=== PATIENT | male | born 1960 | race Caucasian/White ===

== ENCOUNTER 2018-02-04 22:35 | Observation (INO) | payer SELFPAY ==
[2018-02-04 23:27] LABS: Absolute Lymphocytes (CBC) 3.2 K/uL (0.7-4.9); Absolute Monocytes 0.8 K/uL (0.1-1.3); Absolute Neutrophil 5.2 K/uL (1.8-8.0); Basophils % 1.1 % (0-1.3); Eosinophils % 2.5 % (0-4.4); Hematocrit 45.4 % (39.6-49.0); Lymphocytes % 33.6 % (15.3-44.8); MCH 29.3 pg (27.0-35.0); MCV 87.2 fL (80-100); MPV 11.2 fL (7.6-11.3); Monocytes % 8.2 % (3.3-12.3)
[2018-02-04 23:44] LABS: Protime INR 1.58
[2018-02-05 00:08] LABS: ALT/SGPT 58 U/L (12-78); AST/SGOT 24 U/L (15-37); Albumin 3.5 g/dL (3.4-5.0); Alkaline Phosphatase 52 U/L (45-117); BUN Blood Urea Nitrogen 21 mg/dL (7-18); Bicarbonate 26 mmol/L (21-32); Bilirubin Direct 0.1 mg/dL (0-0.2); Bilirubin Total 0.3 mg/dL (0.2-1.0); Glucose Level 202 mg/dL (74-106); NT PRO-BNP 501 pg/mL (<125); Potassium 3.8 mmol/L (3.5-5.1); Protein, Total 6.6 g/dL (6.4-8.2); Sodium Level 139 mmol/L (136-145); Troponin (Emerg Dept Use Only) < 0.02 ng/mL (0.0-0.045)
[2018-02-05 00:09] LABS: Magnesium 1.4 mg/dL (1.8-2.4)
[2018-02-05] MEDS ORDERED: NA CHLORIDE 0.9% 500 ML ONE ×2 (00:09→00:58)
[2018-02-05] MEDS ORDERED: DIGOXIN 0.25 MG/ML AMP ONE (00:17)
[2018-02-05] MEDS ORDERED: METOPROLOL TARTRATE 5 MG/5 ML INJ IV ONE (00:17)
--- NOTE | 2018-02-05 00:58 | ER ---
Nurse's Notes [facility] Name: David Varela Age: 57 yrs Sex: Male : 1960 Arrival Date: 02/04/2018 Time: 22:35 Bed 24 Private MD: Vlad Schroeder S Diagnosis: Unspecified atrial fibrillation;Chest pain, unspecified Presentation: 02/04 22:46 Presenting complaint: Patient states: "I have issues every now and then with my A-Fib. aj1 I started having chest tightness and a hard time breathing at about 6:00 and it just keeps getting worse" Patient also reports nausea and SOB. Transition of care: patient was not received from another setting of care. Onset of symptoms was February 04, 2018 at 18:00. Risk Assessment: Do you want to hurt yourself or someone else? Patient reports no desire to harm self or others. Initial Sepsis Screen: Does the patient meet any 2 criteria? HR > 90 bpm. No. Patient's initial sepsis screen is negative. Does the patient have a suspected source of infection? No. Patient's initial sepsis screen is negative. Care prior to arrival: None. 22:46 Method Of Arrival: Wheelchair aj1 22:46 Acuity: MEDHAT 3 aj1 Triage Assessment: 22:49 General: Appears in no apparent distress. uncomfortable, Behavior is calm, cooperative, aj1 appropriate for age. Pain: Complains of pain in mid-sternal area Pain does not radiate. Pain currently is 7 out of 10 on a pain scale. Quality of pain is described as pressure, Pain began 4 hours ago. Is continuous, Alleviated by nothing. Neuro: Level of Consciousness is awake, alert, obeys commands. Cardiovascular: Reports chest pain, shortness of breath, Patient's skin is warm and dry. Rhythm is irregular. Respiratory: Airway is patent Respiratory effort is even, unlabored, Respiratory pattern is regular, symmetrical. Historical: - Allergies: 22:49 No Known Allergies; aj1 - Home Meds: 22:49 Metformin Oral [Active]; Glipizide Oral [Active]; Xarelto oral oral [Active]; aj1 Metoprolol Tartrate Oral [Active]; Lyrica Oral [Active]; Lisinopril Oral [Active]; Hydrochlorothiazide Oral [Active]; - PMHx: 22:49 Atrial Fib; Hypertension; Diabetes - NIDDM; aj1 - PSHx: 22:49 back surgery; aj1 - Immunization history:: Flu vaccine is not up to date. - Social history:: Smoking status: Patient/guardian denies using tobacco. - Ebola Screening: : Patient denies travel to an Ebola-affected area in the 21 days before illness onset. Screenin:20 Abuse screen: Denies threats or abuse. Denies injuries from another. Nutritional aj1 screening: No deficits noted. Tuberculosis screening: No symptoms or risk factors identified. Fall Risk None identified. Assessment: 22:45 General: Appears in no apparent distress. uncomfortable, well groomed, Behavior is kr2 calm, cooperative, appropriate for age. Pain: Complains of pain in mid-sternal area Pain radiates to chest Pain currently is 7 out of 10 on a pain scale. Quality of pain is described as pressure, Pain began This afternoon Is continuous, Alleviated by nothing. Neuro: Level of Consciousness is awake, alert, obeys commands, Oriented to person, place, time, situation. Cardiovascular: Heart tones S1 S2 present Patient's skin is warm and dry. Rhythm is atrial fibrillation. Respiratory: Airway is patent Respiratory effort is even, unlabored, Respiratory pattern is regular, symmetrical. GI: Abdomen is round non-distended, Bowel sounds present X 4 quads. Patient currently denies nausea, vomiting. Derm: Skin is intact, is healthy with good turgor, Skin is pink, warm \\T\\ dry. Musculoskeletal: Circulation, motion, and sensation intact. 02/05 00:00 Reassessment: Patient appears in no apparent distress at this time. Patient and/or kr2 family updated on plan of care and expected duration. Pain level reassessed. Patient is alert, oriented x 3, equal unlabored respirations, skin warm/dry/pink. 01:08 Reassessment: Patient appears in no apparent distress at this time. Patient and/or kr2 family updated on plan of care and expected duration. Pain level reassessed. Patient is alert, oriented x 3, equal unlabored respirations, skin warm/dry/pink. Vital Signs: 02/04 22:49 BP 122 / 82; Pulse 96; Resp 20; Temp 97.1; Pulse Ox 99% on R/A; Weight 131.54 kg (R); aj1 Height 6 ft. 1 in. (185.42 cm) (R); Pain 7/; 23:00 BP 104 / 75; Pulse 97; Resp 17; Pulse Ox 99% on R/A; kr2 02/05 00:00 BP 113 / 61; Pulse 112; Resp 18; Pulse Ox 99% on R/A; kr2 01:08 BP 111 / 71; Pulse 106; Resp 18; Pulse Ox 99% on R/A; kr2 02:24 BP 117 / 88; Pulse 102; Pulse Ox 98% on R/A; rv 02/04 22:49 Body Mass Index 38.26 (131.54 kg, 185.42 cm) aj1 ED Course: 02/04 22:35 Patient arrived in ED. al2 22:36 Vlad Schroeder MD is Private Physician. al2 22:41 Leonie Choi, FELISA is Primary Nurse. kr2 22:47 Triage completed. aj1 22:49 Arm band placed on Patient placed in an exam room. aj1 23:02 Ralph Castillo PA is PHCP. cp 23:02 Ralph Galvan MD is Attending Physician. cp 23:10 Inserted saline lock: 20 gauge in right forearm, using aseptic technique. Blood kr2 collected. 23:19 Basic Metabolic Panel Sent. aj1 23:19 CBC with Diff Sent. aj1 23:19 LFT's Sent. aj1 23:19 Magnesium Sent. aj1 23:19 NT PRO-BNP Sent. aj1 23:19 PT-INR Sent. aj1 23:19 Troponin (emerg Dept Use Only) Sent. aj1 23:20 Patient has correct armband on for positive identification. Bed in low position. Call aj1 light in reach. Side rails up X 1. Adult w/ patient. business account specialist on. Pulse ox on. NIBP on. Door closed. Head of bed elevated. 23:21 Patient maintains SpO2 saturation greater than 95% on room air. aj1 23:33 XRAY Chest (1 view) In Process Unspecified. EDMS 02/05 00:10 Notified Nurse Practitioner and/or Physician Chaser Apprentice of a critical lab result(s), mag fc level of 1.4. 00:57 Satinder Casillas MD is Hospitalizing Provider. cp 02:27 No provider procedures requiring assistance completed. Patient admitted, IV remains in rv place. intact. Administered Medications: 00:00 Drug: NS 0.9% 500 ml Volume: 500 ml; Route: IV; Rate: 1 bolus; Site: right forearm; kr2 01:14 Follow up: Response: No adverse reaction; IV Status: Completed infusion kr2 00:15 Drug: Digoxin 0.5 mg Route: IVP; Site: right forearm; kr2 01:13 Follow up: Response: No adverse reaction kr2 00:18 Drug: Metoprolol 2.5 mg Route: IVP; Site: right forearm; kr2 01:13 Follow up: Response: No adverse reaction kr2 01:01 Drug: Metoprolol 2.5 mg Route: IVP; Site: right forearm; kr2 01:12 Follow up: Response: No adverse reaction kr2 01:02 Drug: NS 0.9% 500 ml Route: IV; Rate: bolus; Site: right antecubital; kr2 02:43 Follow up: IV Status: Completed infusion rv 01:23 Drug: Magnesium Sulfate 2 grams Route: IVPB; Infused Over: 2 hrs; Site: right forearm; kr2 02:44 Follow up: IV Status: Completed infusion rv 01:23 Not Given (Patient Refused): Aspirin Chewable Tablet 324 mg PO once; 81 mg tablets x 4 kr2 Outcome: 00:57 Decision to Hospitalize by Provider. cp 02:28 Admitted to Tele accompanied by [facility], via wheelchair, room 422, with chart, Report rv called to marko joseph 02:28 Condition: stable 02:28 Instructed on the need for admit. 02:44 Patient left the ED. rv Signatures: Dispatcher [employer] EDIL Jazmin Canchola RN RN Linda Sanders RN RN fc Page, Corey, PA PA cp Leonie Choi RN RN kr2 Love, Angelica al2 Vicente, Ronaldo, RN RN rv Corrections: (The following items were deleted from the chart) 02/04 23:53 23:10 Missed attempt(s): 20 gauge in right forearm. Bleeding controlled, band aid aj1 applied, catheter tip intact. aj1 23:53 23:10 Inserted saline lock: 20 gauge in right forearm, using aseptic technique. Blood aj1 collected. aj1 :53 23:00 General: Appears in no apparent distress. uncomfortable, well groomed, well aj1 developed, well nourished, Behavior is calm, cooperative, appropriate for age, aj1 23:00 Pain: Complains of pain in mid-sternal area Pain radiates to chest Pain currently aj1 is 7 out of 10 on a pain scale. Quality of pain is described as pressure, Is continuous, Alleviated by nothing. aj1 23:00 Neuro: Level of Consciousness is awake, alert, obeys commands, Oriented to aj1 person, place, time, situation, Denies dizziness, aj1 23:00 Pain: Pain began This afternoon aj1 aj1 23:00 Cardiovascular: Heart tones S1 S2 Patient's skin is warm and dry. Rhythm is aj1 atrial fibrillation aj1 23:00 Respiratory: Airway is patent Respiratory effort is even, unlabored, Respiratory aj1 pattern is regular, symmetrical, aj1 :00 GI: Abdomen is round non-distended, Patient currently denies nausea, vomiting, aj1aj1 23:00 EENT: Oral mucosa is moist. aj1 aj1 23:00 Derm: Skin is intact, is healthy with good turgor, Skin is pink, warm \\T\\ dry. aj1 aj1 23:00 Musculoskeletal: Circulation, motion, and sensation intact. aj1 aj1
--- NOTE | 2018-02-05 00:58 | EDPHYS ---
Physician Documentation [facility] Name: David Varela Age: 57 yrs Sex: Male : 1960 Arrival Date: 02/04/2018 Time: 22:35 Bed 24 Private MD: Vlad Schroeder S ED Physician Ralph Galvan HPI: 02/04 23:25 This 57 yrs old Male presents to ER via Wheelchair with complaints of Chest cp Pain. 23:25 The patient or guardian reports chest pain that is located primarily in the anterior cp chest wall. 23:25 Onset: today, at 18:00. The pain does not radiate. Associated signs and symptoms: cp Pertinent positives: palpitations, shortness of breath. The chest pain is described as a pressure. Duration: The patient or guardian reports a single episode, that is still ongoing, but improving. Historical: - Allergies: 22:49 No Known Allergies; aj1 - Home Meds: 22:49 Metformin Oral [Active]; Glipizide Oral [Active]; Xarelto oral oral [Active]; aj1 Metoprolol Tartrate Oral [Active]; Lyrica Oral [Active]; Lisinopril Oral [Active]; Hydrochlorothiazide Oral [Active]; - PMHx: 22:49 Atrial Fib; Hypertension; Diabetes - NIDDM; aj1 - PSHx: 22:49 back surgery; aj1 - Immunization history:: Flu vaccine is not up to date. - Social history:: Smoking status: Patient/guardian denies using tobacco. - Ebola Screening: : Patient denies travel to an Ebola-affected area in the 21 days before illness onset. ROS: 23:28 Constitutional: Negative for body aches, chills, fever, poor PO intake. cp 23:28 Eyes: Negative for injury, pain, redness, and discharge. cp 23:28 ENT: Negative for drainage from ear(s), ear pain, sore throat, difficulty swallowing, difficulty handling secretions. 23:28 Cardiovascular: Positive for chest pain, palpitations, Negative for edema. 23:28 Respiratory: Positive for shortness of breath, Negative for cough, wheezing. 23:28 Abdomen/GI: Negative for abdominal pain, nausea, vomiting, and diarrhea. 23:28 Back: Negative for pain at rest, pain with movement, radiated pain. 23:28 Skin: Positive for rash. 23:28 Neuro: Negative for altered mental status, headache, syncope, near syncope, weakness. 23:28 All other systems are negative. Exam: 23:00 ECG was reviewed by the Attending Physician. cp 23:35 Constitutional: The patient appears in no acute distress, alert, awake, cp non-diaphoretic, non-toxic, well developed, well nourished. 23:35 Head/Face: Normocephalic, atraumatic. Eyes: Pupils equal round and reactive to light, cp extra-ocular motions intact. Lids and lashes normal. Conjunctiva and sclera are non-icteric and not injected. Cornea within normal limits. Periorbital areas with no swelling, redness, or edema. ENT: Nares patent. No nasal discharge, no septal abnormalities noted. Tympanic membranes are normal and external auditory canals are clear. Oropharynx with no redness, swelling, or masses, exudates, or evidence of obstruction, uvula midline. Mucous membranes moist. Neck: Trachea midline, no thyromegaly or masses palpated, and no cervical lymphadenopathy. Supple, full range of motion without nuchal rigidity, or vertebral point tenderness. No Meningismus. Chest/axilla: Normal chest wall appearance and motion. Nontender with no deformity. No lesions are appreciated. 23:35 Cardiovascular: Rate: normal, Rhythm: irregularly irregular, Pulses: Pulses are 2+ in right radial artery and left radial artery. Edema: is not appreciated, JVD: is not appreciated. 23:35 Respiratory: the patient does not display signs of respiratory distress, Respirations: normal, no use of accessory muscles, no retractions, no splinting, no tachypnea, labored breathing, is not present, Breath sounds: are clear throughout, no decreased breath sounds, no stridor, no wheezing. 23:35 Abdomen/GI: Inspection: obese Bowel sounds: active, all quadrants, Palpation: abdomen is soft and non-tender, in all quadrants, rebound tenderness, is not appreciated, voluntary guarding, is not appreciated, involuntary guarding, is not appreciated. 23:35 Back: pain, is absent, ROM is normal. 23:35 Neuro: Orientation: to person, place \T\ time. Mentation: lucid, able to follow commands, Cerebellar function: is grossly normal, Motor: moves all fours, strength is normal, Sensation: no obvious gross deficits. Vital Signs: 22:49 BP 122 / 82; Pulse 96; Resp 20; Temp 97.1; Pulse Ox 99% on R/A; Weight 131.54 kg (R); aj1 Height 6 ft. 1 in. (185.42 cm) (R); Pain 7/10; 23:00 BP 104 / 75; Pulse 97; Resp 17; Pulse Ox 99% on R/A; kr2 02/05 00:00 BP 113 / 61; Pulse 112; Resp 18; Pulse Ox 99% on R/A; kr2 01:08 BP 111 / 71; Pulse 106; Resp 18; Pulse Ox 99% on R/A; kr2 02:24 BP 117 / 88; Pulse 102; Pulse Ox 98% on R/A; rv 02/04 22:49 Body Mass Index 38.26 (131.54 kg, 185.42 cm) aj1 MDM: 02/04 23:03 Patient medically screened. cp 02/05 00:45 Data reviewed: vital signs, nurses notes, lab test result(s), EKG, radiologic studies, cp plain films. 00:45 Test interpretation: by ED physician or midlevel provider: ECG, plain radiologic cp studies. 00:50 Physician consultation: Satinder Casillas MD was called at 00:50, was contacted at 00:50, cp regarding admission, to the telemetry unit. patient's condition. 02/04 23:02 Order name: Basic Metabolic Panel; Complete Time: 00:22 cp 02/04 23:02 Order name: CBC with Diff; Complete Time: 00:22 cp 02/04 23:02 Order name: LFT's; Complete Time: 00:22 cp 02/04 23:02 Order name: Magnesium; Complete Time: 00:22 cp 02/04 23:02 Order name: NT PRO-BNP; Complete Time: 00:22 cp 02/04 23:02 Order name: PT-INR; Complete Time: 00:22 cp 02/04 23:02 Order name: Troponin (emerg Dept Use Only); Complete Time: 00:22 cp 02/04 23:02 Order name: XRAY Chest (1 view) cp 02/04 23:02 Order name: EKG; Complete Time: 23:03 cp 02/04 23:02 Order name: Cardiac monitoring; Complete Time: 23:18 cp 02/04 23:02 Order name: EKG - Nurse/Tech; Complete Time: 23:18 cp 02/04 23:02 Order name: IV Saline Lock; Complete Time: 23:18 cp 02/04 23:02 Order name: Labs collected and sent; Complete Time: 23:18 cp 02/04 23:02 Order name: O2 Per Protocol; Complete Time: 23:18 cp 02/04 23:02 Order name: O2 Sat Monitoring; Complete Time: 23:18 cp 02/04 23:59 Order name: NPO; Complete Time: 00:07 cp EC/25 23:00 Rate is 116 beats/min. Rhythm is irregularly irregular. QRS interval is normal. QT cp interval is normal. Interpreted by me. Reviewed by me. Administered Medications: 02/05 00:00 Drug: NS 0.9% 500 ml Volume: 500 ml; Route: IV; Rate: 1 bolus; Site: right forearm; kr2 01:14 Follow up: Response: No adverse reaction; IV Status: Completed infusion kr2 00:15 Drug: Digoxin 0.5 mg Route: IVP; Site: right forearm; kr2 01:13 Follow up: Response: No adverse reaction kr2 00:18 Drug: Metoprolol 2.5 mg Route: IVP; Site: right forearm; kr2 01:13 Follow up: Response: No adverse reaction kr2 01:01 Drug: Metoprolol 2.5 mg Route: IVP; Site: right forearm; kr2 01:12 Follow up: Response: No adverse reaction kr2 01:02 Drug: NS 0.9% 500 ml Route: IV; Rate: bolus; Site: right antecubital; kr2 02:43 Follow up: IV Status: Completed infusion rv 01:23 Drug: Magnesium Sulfate 2 grams Route: IVPB; Infused Over: 2 hrs; Site: right forearm; kr2 02:44 Follow up: IV Status: Completed infusion rv 01:23 Not Given (Patient Refused): Aspirin Chewable Tablet 324 mg PO once; 81 mg tablets x 4 kr2 Disposition: 05:54 Co-signature as Attending Physician, Ralph KUMAR I agree with the assessment and quinn plan of care. Disposition: 02/05/18 00:57 Hospitalization ordered by Satinder Casillas for Observation. Preliminary diagnosis are Unspecified atrial fibrillation, Chest pain, unspecified. - Bed requested for Telemetry/MedSurg (observation). - Status is Observation. rv - Condition is Stable. - Problem is an ongoing problem. - Symptoms have improved. UTI on Admission? No Signatures: Dispatcher [employer] EDJazmin Fuentes, RN RN aj1 Ralph Galvan MD MD cha Page, Corey, PA PA cp Leonie Choi RN RN kr2 Jennifer Londono mw2 Taurus Westbrook RN RN rv Corrections: (The following items were deleted from the chart) 02:17 00:57 Hospitalization Ordered by Satinder Casillas MD for Observation. Preliminary mw2 diagnosis is Unspecified atrial fibrillation; Chest pain, unspecified. Bed requested for Telemetry/MedSurg (observation). Status is Observation. Condition is Stable. Problem is an ongoing problem. Symptoms have improved. UTI on Admission? No. cp 02:44 02:17 02/05/2018 00:57 Hospitalization Ordered by Satinder Casillas MD for Observation. rv Preliminary diagnosis is Unspecified atrial fibrillation; Chest pain, unspecified. Bed requested for Telemetry/MedSurg (observation). Status is Observation. Condition is Stable. Problem is an ongoing problem. Symptoms have improved. UTI on Admission? No. mw2
[2018-02-05] MEDS ORDERED: ASPIRIN 81 MG CHEWABLE TABLET ONE (01:22)
[2018-02-05] MEDS ORDERED: Magnesium Sulfate 2gm IVPB 2 G/50 ML BAG IV ONE (01:22)
[2018-02-05] MEDS ORDERED: ONDANSETRON 4 MG/2 ML VIAL IV PRN (01:37)
[2018-02-05] MEDS ORDERED: ACETAMINOPHEN 500 MG TAB PO PRN (01:37)
--- NOTE | 2018-02-05 01:46 | P.HP ---
Certification for Inpatient Patient admitted to: Observation With expected LOS: <2 Midnights Practitioner: I am a practitioner with admitting privileges, knowledge of patient current condition, hospital course, and medical plan of care. Services: Services provided to patient in accordance with Admission requirements found in Title 42 Section 412.3 of the Code of Federal Regulations Patient History Date of Service: 02/05/18 Reason for admission: Chest Pain, atrial fibrillation History of Present Illness: Mr Varela is a 57-year-old male with history of obesity, diabetes mellitus types 2, hypertension, chronic atrial fibrillation anticoagulated with Xarelto, who start about 3 weeks ago with episode of chest pain. He described the pain pressure-like in substernal area, about 5/10 of intensity, no radiation, associated with nausea, shortness of breath and diaphoresis. The chest pain lasts for about 1 hr. Laboratory work remarkable for normal WBC count, troponin I negative, EKG shows atrial fibrillation at about 100 bpm, no ST-T abnormalities. The patient was sent to ER by Dr. Schroeder, who is planning to cardioversion in the morning. Allergies No Known Allergies Allergy (Unverified 02/05/18 01:48) Home medications list reviewed: Yes - Past Medical/Surgical History -: Chronic AFib -: Hypertension -: Diabetes mellitus -: Back surgery - Family History Family History: Reviewed- Non-Contributory - Social History Smoking Status: Former smoker Alcohol use: No CD- Drugs: No Place of Residence: Home Review of Systems 10-point ROS is otherwise unremarkable Physical Examination - Physical Exam General: Alert, In no apparent distress HEENT: Atraumatic, PERRLA, Mucous membr. moist/pink, EOMI, Sclerae nonicteric Neck: Supple, 2+ carotid pulse no bruit, No LAD, Without JVD or thyroid abnormality Respiratory: Clear to auscultation bilaterally, Normal air movement Cardiovascular: Normal S1 S2, Irregular heart rate/rhythm Gastrointestinal: Normal bowel sounds, No tenderness Musculoskeletal: No tenderness Integumentary: No rashes Neurological: Normal speech, Normal strength at 5/5 x4 extr, Normal tone, Normal affect Lymphatics: No axilla or inguinal lymphadenopathy - Studies Laboratory Data (last 24 hrs) 02/04/18 23:15: PT 18.7 H, INR 1.58 02/04/18 23:15: WBC 9.5, Hgb 15.3, Hct 45.4, Plt Count 145 L 02/04/18 23:15: Sodium 139, Potassium 3.8, BUN 21 H, Creatinine 1.00, Glucose 202 H, Magnesium 1.4 L*, Total Bilirubin 0.3, AST 24, ALT 58, Alkaline Phosphatase 52 Assessment and Plan - Problems (Diagnosis) (1) Chronic atrial fibrillation Current Visit: Yes Status: Acute (2) Chest pain Current Visit: Yes Status: Acute Qualifiers: Chest pain type: precordial pain Qualified Code(s): R07.2 - Precordial pain (3) Obesity Current Visit: Yes Status: Acute Qualifiers: Obesity type: due to excess calories Obesity classification: unspecified obesity classification Serious obesity comorbidity presence: without serious comorbidity Qualified Code(s): E66.09 - Other obesity due to excess calories (4) Hypertension Current Visit: Yes Status: Acute Qualifiers: Hypertension type: essential hypertension Qualified Code(s): I10 - Essential (primary) hypertension - Plan The patient will be admitted to the hospital due to typical chest pain in context of atrial fibrillation. Dr Schroeder is planning to do cardioversion in the morning. In the meantime keep the patient NPO, repeat serial laboratory test or cardiac enzymes. Also serial EKG. - Advance Directives Does patient have a Living Will: No Does patient have a Durable POA for Healthcare: No - Code Status/Comfort Care Code Status Assessed: Yes Code Status: Full Code
[2018-02-05] MEDS: NA CHLORIDE 0.9% 1,000 ML IV SCH ×2 (03:11→11:22)
[2018-02-05] MEDS: DIGOXIN 0.25 MG/ML AMP IV SCH ×2 (03:31→08:54)
[2018-02-05 04:51] VITALS: BMI 39.5
[2018-02-05] MEDS: INSULIN -REGULAR HUMAN 50 UNIT/0.5 ML ML SQ SCH ×2 (06:00→11:25)
--- NOTE | 2018-02-05 07:28 | EKG ---
Test Date: 2018-02-04 Test Time: 22:48:07 Remittance Clerk: BOB MEASUREMENT RESULTS: Intervals: Rate: 116 OR: QRSD: 78 QT: 284 QTc: 394 [place]: P: OR: QRS: 68 T: 54 INTERPRETIVE STATEMENTS: Atrial fibrillation with rapid ventricular response with premature ventricular or aberrantly conducted complexes Abnormal ECG No previous ECG available for comparison Electronically Signed On 02-05-18 07:27:30 CDT by Vlad Schroeder
--- NOTE | 2018-02-05 07:44 | RAD REPORT ---
EXAM DESCRIPTION: RAD - Chest Single View - 02/04/2018 11:33 pm CLINICAL HISTORY: Chest pain, chest tightness, history of atrial fibrillation COMPARISON: None. TECHNIQUE: AP portable chest image was obtained 2316 hours . FINDINGS: No focal infiltrate, mass or significant failure finding. Minimal prominence of the lung m arkings probably baseline. Heart and vasculature are normal. No measurable pleural effusion and no pn eumothorax. No acute bony abnormality seen. No acute aortic findings suspected. IMPRESSION: No acute cardiopulmonary process.
[2018-02-05] MEDS ORDERED: ASPIRIN 81 MG CHEWABLE TABLET PO SCH (09:00)
[2018-02-05] MEDS ORDERED: MAGNESIUM SULFATE 1 gm IVPB 1 GM/100 ML BAG IV ONE (09:07)
--- NOTE | 2018-02-05 09:33 | P.SSS ---
Patient History Date of Service: 02/05/18 Reason for admission: Chest Pain, atrial fibrillation History of Present Illness: Mr Varela is a 57-year-old male with history of obesity, diabetes mellitus types 2, hypertension, chronic atrial fibrillation anticoagulated with Xarelto, who start about 3 weeks ago with episode of chest pain. He described the pain pressure-like in substernal area, about 5/10 of intensity, no radiation, associated with nausea, shortness of breath and diaphoresis. The chest pain lasts for about 1 hr. Laboratory work remarkable for normal WBC count, troponin I negative, EKG shows atrial fibrillation at about 100 bpm, no ST-T abnormalities. The patient was sent to ER by Dr. Schroeder, who is planning to cardioversion in the morning. Allergies No Known Allergies Allergy (Unverified 02/05/18 01:48) - Past Medical/Surgical History Has patient received pneumonia vaccine in the past: No Diabetic: No -: Chronic AFib -: Hypertension -: Diabetes mellitus -: Back surgery - Family History Family History: Reviewed- Non-Contributory - Social History Smoking Status: Never smoker Alcohol use: No CD- Drugs: No Caffeine use: Yes Place of Residence: Home Review of Systems 10-point ROS is otherwise unremarkable Physical Examination - Vital Signs Temperature: 96.8 F Blood Pressure: 117/74 Pulse: 63 Respirations: 20 Pulse Ox (%): 97 - Physical Exam General: Alert, In no apparent distress HEENT: Atraumatic, PERRLA, Mucous membr. moist/pink, EOMI, Sclerae nonicteric Neck: Supple, 2+ carotid pulse no bruit, No LAD, Without JVD or thyroid abnormality Respiratory: Clear to auscultation bilaterally, Normal air movement Cardiovascular: Regular rate/rhythm, Normal S1 S2 Gastrointestinal: Normal bowel sounds, No tenderness Musculoskeletal: No tenderness Integumentary: No rashes Neurological: Normal gait, Normal speech, Normal strength at 5/5 x4 extr, Normal tone, Normal affect - Studies Laboratory Data (last 24 hrs) 02/04/18 23:15: PT 18.7 H, INR 1.58 02/04/18 23:15: WBC 9.5, Hgb 15.3, Hct 45.4, Plt Count 145 L 02/04/18 23:15: Sodium 139, Potassium 3.8, BUN 21 H, Creatinine 1.00, Glucose 202 H, Magnesium 1.4 L*, Total Bilirubin 0.3, AST 24, ALT 58, Alkaline Phosphatase 52 Treatment Summary: - Problems (Diagnosis) (1) Chronic atrial fibrillation (2) Chest pain (3) Obesity (4) Hypertension The patient was admitted to the hospital for chest pain in xontext of Atrial fibrillation, he was sent by Dr. schroeder for a cardioversion in the morning. Overnight, patient's symptoms resolved and he was seen by Dr. schroeder who stated that he will not plan cardioversion today as patient was in NSR without a -fib. He will follow up outpatient in Dr. schroeder's office. At the time of discharge, patient without any symptoms and in NSR. Continue same medications upon discharge and follow up outpatient in Dr. Schroeder's office. - Disposition Disposition: ROUTINE DISCHARGE Condition: GOOD Consultations: Cardiology, Dr. Schroeder Patient Discharge Instructions: Please follow up with your marketing information analyst, dr. schroeder Diet: AHA Activity: Ad matt Time Spent Managing Pts Care (In Minutes): 30
[2018-02-05] MEDS ORDERED: MIDAZOLAM HCL 5 MG/5 ML INJ ONE (13:15)
--- NOTE | 2018-02-05 13:46 | EKG ---
Test Date: 2018-02-05 Test Time: 10:38:08 Sr. Director: ALEKS MEASUREMENT RESULTS: Intervals: Rate: 92 FL: 152 QRSD: 78 QT: 374 QTc: 462 [place]: P: -88 [place]: 152 QRS: 41 T: 4 INTERPRETIVE STATEMENTS: aflutter ST & T wave abnormality, consider inferior ischemia ST & T wave abnormality, consider anterior ischemia Prolonged QT Abnormal ECG Compared to ECG 02/05/2018 07:39:11 ST (T wave) deviation now present Possible ischemia now present Prolonged QT interval now present Sinus rhythm no longer present Electronically Signed On 02-05-18 13:45:11 CDT by Vlad Schroeder
--- NOTE | 2018-02-05 13:47 | EKG ---
Test Date: 2018-02-05 Test Time: 07:39:11 Clinical Research Analyst: ALEKS MEASUREMENT RESULTS: Intervals: Rate: 61 [place]: 150 QRSD: 80 QT: 414 QTc: 416 [place]: P: 77 [place]: 150 QRS: 66 T: 81 INTERPRETIVE STATEMENTS: Normal sinus rhythm Normal ECG Compared to ECG 02/04/2018 22:48:07 Atrial fibrillation no longer present Ventricular premature complex(es) no longer present Electronically Signed On 02-05-18 13:45:39 CDT by Vlad Schroeder
[2018-02-05 14:02] VITALS: O2SAT 98
[2018-02-05 14:46] VITALS: BP 114/72; TEMP 96
--- NOTE | 2018-02-05 18:14 | CON ---
Date of Consultation: 02/05/2018 Reason For Consultation: Atrial fibrillation and chest pain. History Of Present Illness: The patient is a 57-year-old white male. He is a patient of mine, has d iabetes, hypertension, dyslipidemia, fairly new-onset atrial fibrillation, placed on metoprolol and X arelto and scheduled for cardioversion as an outpatient. However, he came in the night before his ca rdioversion with chest pain, rapid atrial fibrillation and was admitted for further evaluation and tr eatment. Denied PND, orthopnea, pedal edema, or syncope. Past Medical History: As stated above. Allergies: NONE. Review of Systems: Negative. Social History: Negative. Family History: Positive for heart disease. Medications: At home include metformin, glipizide, Xarelto, metoprolol, Lyrica, lisinopril and hydro chlorothiazide. Physical Examination: Vital Signs: Blood pressure was 122/82, pulse was 96, in atrial fibrillation, afebrile. HEENT: Negative. Neck: Supple, with no bruit. Chest: Clear. Cardiac: Revealed atrial fibrillation. Abdomen: Obese, but benign. Extremities: Revealed no clubbing, cyanosis, or edema. Diagnostic Data: His magnesium was 1.4. The rest of the blood work was normal. BNP was 501. EKG s howed atrial fibrillation. Chest x-ray was negative. Impression And Plan: 1.Atrial fibrillation, unresponsive to beta-blockers and Xarelto. We will plan a cardioversion in t he morning and if he converts, we will probably switch him to Multaq 400 b.i.d. If that fails, we wi ll consider amiodarone or ablation. 2.Diabetes. 3.Hypertension, well controlled. 4.Dyslipidemia, well controlled. GARRETT/DIVINEL Voice ID: [id number] Report ID: [id number]
--- NOTE | 2018-02-05 19:19 | OP ---
Surgeon: Vlad Schroeder MD Die Cutting Machine Operator: Nikki Martell. Total conscious sedation was [address] Izquierdo's service on 02/05/2018. The patient was brought to the fence laborer today for a cardioversion because of atrial fibrillation. Procedure: Direct current cardioversion. Indication: Atrial fibrillation. Procedure In Detail: The patient was prepped in the routine sterile fashion. He was given a total o f 11 mg of Versed for IV sedation. He was in atrial fibrillation at a rate of 131. He received 1 sh ock with 100 joules and converted to normal rhythm. Complications: None. Plan: For him to go home on Xarelto, on Multaq 400 b.i.d. He will see me in the office in 2 weeks. GARRETT/JULIANA Voice ID: [id number] Report ID: [id number]
--- NOTE | 2018-02-06 12:28 | EKG ---
Test Date: 2018-02-05 Test Time: 13:40:05 Communications Strategist: ALEKS MEASUREMENT RESULTS: Intervals: Rate: 65 [place]: 152 QRSD: 74 QT: 404 QTc: 420 [place]: P: 37 [place]: 152 QRS: 19 T: 22 INTERPRETIVE STATEMENTS: Normal sinus rhythm Normal ECG Compared to ECG 02/05/2018 10:38:08 ST (T wave) deviation no longer present Possible ischemia no longer present Prolonged QT interval no longer present Electronically Signed On 02-06-18 12:25:55 CDT by Vlad Schroeder
== END 2018-02-05 15:17 | disposition home or self-care (01) ==
LOC: ER 22:35 → ERHOLD 02-05 00:57 → 4TH 02-05 02:26
PROVIDERS: ADMIT Internal Medicine; ATTEND Internal Medicine
PROC: 5A2204Z Restoration of Cardiac Rhythm, Single (ICD-10-PCS; principal; 2018-02-05)
DX: I48.2 Chronic atrial fibrillation (principal); R07.2 Precordial pain; E11.9 Type 2 diabetes mellitus without complications; I10 Essential (primary) hypertension; E66.9 Obesity, unspecified; Z68.39 Body mass index [BMI] 39.0-39.9, adult; Z79.01 Long term (current) use of anticoagulants
CPT/HCPCS: 36415; 71045; 80048; 80076; 80162; 82565; 82962; 83735; 83880; 84484; 85025; 85610; 92960; 93005; 96361; 96365; 96375; 99285; J1160; J2250; J3475; J7030

== ENCOUNTER 2022-01-05 20:07 | Inpatient (IN) | payer SELFPAY ==
[2022-01-05 20:45] LABS: Hematocrit 47.6 % (39.6-49.0); Lymphocytes % 29.9 % (15.3-44.8); MCV 84.2 fL (80-100); RBC Red Blood Cell Count 5.65 M/uL (4.33-5.43)
[2022-01-05 21:02] LABS: Albumin 3.6 g/dL (3.4-5.0); Bilirubin Total 0.4 mg/dL (0.2-1.0); Potassium 4.4 mmol/L (3.5-5.1); Protein, Total 6.7 g/dL (6.4-8.2); Troponin High Sensitivity 13.6 pg/mL (<58.9)
--- NOTE | 2022-01-05 21:16 | EDPHYS ---
Physician Documentation [facility] Name: David Varela Age: 61 yrs Sex: Male : 1960 Arrival Date: 01/05/2022 Time: 20:10 Bed 19 Private MD: ED Physician Elsy Gupta HPI: 01/05 21:03 This 61 yrs old Male presents to ER via Ambulatory with complaints of Chest Pain, sd2 Breathing Difficulty. 21:03 61 yo M presents with CC of chest pressure and SOB that started 1.5 to 2 hours ago sd2 while he was out shopping with his . Reports significant SOB with exertion that he normally would not have problems with and continued SOB at rest. Chest pressure is located midsternally without radiation. Denies any nausea, vomiting or diaphoresis. Has a history of A-fib on ASA. Not currently on blood thinners. Denies prior history of MN or heart catheterization. Was sent by his chemical production engineer, Dr. Schroeder, to be admitted and have heart cath performed in the AM.. Historical: - Allergies: 20:15 No Known Allergies; hb - PMHx: 20:15 Atrial Fib; Diabetes - NIDDM; Hypertension; hb - PSHx: 20:15 Knee - Right; Back; Cardioversion; hb - Immunization history:: Adult Immunizations up to date. - Social history:: Smoking status: Patient denies any tobacco usage or history of. ROS: 21:03 Constitutional: Negative for fever, chills, and weight loss, Eyes: Negative for injury, sd2 pain, redness, and discharge, Cardiovascular: Positive for chest pain, Negative for palpitations, and edema, Respiratory: Positive for shortness of breath, negative for cough, wheezing. Abdomen/GI: Negative for abdominal pain, nausea, vomiting, diarrhea. MS/Extremity: Negative for injury and deformity, Skin: Negative for injury, rash, and discoloration, Neuro: Negative for headache, numbness and tingling. Exam: 21:03 Constitutional: This is a well developed, well nourished patient who is awake, alert, sd2 and in no acute distress. Head/Face: Normocephalic, atraumatic. Eyes: EOMI, normal conjunctiva bilaterally Chest/axilla: Normal chest wall appearance and motion. Nontender with no deformity. Cardiovascular: Regular rate and rhythm with a normal S1 and S2. No gallops, murmurs, or rubs. 2+ distal pulses. Respiratory: Lungs have equal breath sounds bilaterally, clear to auscultation and percussion. No rales, rhonchi or wheezes noted. No increased work of breathing, no retractions or nasal flaring. Abdomen/GI: Soft, non-tender, with normal bowel sounds. No guarding or rebound. No evidence of tenderness throughout. Skin: Warm, dry with normal turgor. Normal color with no rashes, no lesions, and no evidence of cellulitis. MS/ Extremity: Pulses equal, no cyanosis. Neurovascular intact. Full, normal range of motion. Ambulatory without difficulty. Psych: Awake, alert, with orientation to person, place and time. Behavior, mood, and affect are within normal limits. 21:03 ECG was reviewed by the Attending Physician. NSR, rate 78, no STEMI criteria or ST-T sd2 wave changes Vital Signs: 20:13 BP 134 / 80; Pulse 81; Resp 20; Temp 97.7; Pulse Ox 98% on R/A; Weight 124.74 kg; hb Height 6 ft. 1 in. (185.42 cm); Pain 4/10; 20:13 Body Mass Index 36.28 (124.74 kg, 185.42 cm) hb MDM: 20:40 Patient medically screened. sd2 21:03 Differential diagnosis: Differential diagnosis includes but is not limited to: ACS, sd2 DVT/PE, pneumothorax, dissection, musculoskeletal, anxiety, anemia, electrolyte abnormality, pneumonia, CHF, COPD among others. Data reviewed: vital signs, nurses notes. 21:12 Data reviewed: lab test result(s), EKG, radiologic studies. Counseling: I had a sd2 detailed discussion with the patient and/or guardian regarding: the historical points, exam findings, and any diagnostic results supporting the discharge/admit diagnosis, lab results, radiology results, the need for further work-up and treatment in the hospital. Physician consultation: Vlad Schroeder MD was called at 21:12, was contacted at 21:12, regarding consult, would like admission per Dr. Darcie Fonseca MD. 01/05 20:21 Order name: CBC with Diff; Complete Time: 21:10 sd2 01/05 20:21 Order name: CMP; Complete Time: 21:10 sd2 01/05 20:21 Order name: Troponin High Sensitivity; Complete Time: 21:10 co2 01/05 20:46 Order name: BNP; Complete Time: 21:10 co2 01/05 21:19 Order name: SARS RAPID; Complete Time: 21:53 as6 01/06 00:33 Order name: Glucose, Ancillary Testing; Complete Time: 00:38 EDMN 01/06 02:47 Order name: CBC without Diff; Complete Time: 03:26 EDMN 01/06 03:13 Order name: Hemoglobin A1c; Complete Time: 03:26 EDMN 01/06 03:17 Order name: Basic Metabolic Panel; Complete Time: 03:31 EDMN 01/06 03:17 Order name: Troponin High Sensitivity; Complete Time: 03:31 EDMN 01/06 03:17 Order name: Lipid Profile; Complete Time: 03:31 EDMS 01/06 03:17 Order name: Thyroid Stimulating Hormone; Complete Time: 03:31 EDMN 01/06 03:29 Order name: T4 Free; Complete Time: 03:31 EDMN 01/06 06:35 Order name: Glucose, Ancillary Testing EDMN 01/05 20:18 Order name: EKG; Complete Time: 20:18 01/05 20:18 Order name: EKG - Nurse/Tech; Complete Time: 20:18 01/05 20:21 Order name: XRAY Chest (1 view); Complete Time: 21:30 sd2 Administered Medications: No medications were administered Disposition Summary: 01/05/22 21:15 Hospitalization Ordered Hospitalization Status: Observation sd2 Provider: Darcie Fonseca sd2 Condition: Stable sd2 Problem: new sd2 Symptoms: are unchanged sd2 Bed/Room Type: Standard sd2 Location: [facility] ER HOLD(01/05/22 22:10) mw Room Assignment: ERHOLD-(01/05/22 22:10) mw Diagnosis - Nonspecific chest pain sd2 - Dyspnea on exertion sd2 Forms: - Medication Reconciliation Form sd2 - SBAR form sd2 Signatures: Dispatcher [employer] [facility] Nia Meyer RN RN mw Baxter, Heather, RN RN hb Dunlop, Stephanie, MD MD sd2 Brown, Melissa, PA-C PA-C sb4 Corrections: (The following items were deleted from the chart) 21:15 Telemetry/MedSurg (observation) sd2 mw : 21:15 co
--- NOTE | 2022-01-05 21:16 | ER ---
Nurse's Notes [facility] Name: David Varela Age: 61 yrs Sex: Male : 1960 Arrival Date: 01/05/2022 Time: 20:10 Bed 19 Private MD: Diagnosis: Nonspecific chest pain;Dyspnea on exertion Presentation: 01/05 20:13 Chief complaint: Intermittent substernal pressure and SOB that started this evening hb while shopping. Coronavirus screen: At this time, the client does not indicate any symptoms associated with coronavirus-19. Ebola Screen: No symptoms or risks identified at this time. Initial Sepsis Screen: Does the patient meet any 2 criteria? No. Patient's initial sepsis screen is negative. Does the patient have a suspected source of infection? No. Patient's initial sepsis screen is negative. Risk Assessment: Do you want to hurt yourself or someone else? Patient reports no desire to harm self or others. Onset of symptoms was January 05, 2022. 20:13 Method Of Arrival: Ambulatory hb 20:13 Acuity: MEDHAT 3 hb Triage Assessment: 20:15 General: Appears in no apparent distress. Behavior is calm, cooperative. Pain: Pain hb currently is 4 out of 10 on a pain scale. Neuro: Level of Consciousness is awake, alert, obeys commands, Oriented to person, place, time, situation. Cardiovascular: Patient's skin is warm and dry. Chest pain. Respiratory: Respiratory effort is even, unlabored, Respiratory pattern is regular, symmetrical. Historical: - Allergies: 20:15 No Known Allergies; hb - PMHx: 20:15 Atrial Fib; Diabetes - NIDDM; Hypertension; hb - PSHx: 20:15 Knee - Right; Back; Cardioversion; hb - Immunization history:: Adult Immunizations up to date. - Social history:: Smoking status: Patient denies any tobacco usage or history of. Screenin:17 Abuse screen: Denies threats or abuse. Denies injuries from another. Nutritional hb screening: No deficits noted. Tuberculosis screening: No symptoms or risk factors identified. Fall Risk None identified. Assessment: 20:50 General: Appears in no apparent distress. Behavior is calm, cooperative. Pain: as6 Complains of pain in chest Quality of pain is described as pressure, sharp. Neuro: Level of Consciousness is awake, alert, Reports dizziness. Cardiovascular: Reports chest pain, fatigue, lightheadedness, shortness of breath, Chest pain quality is pressure, sharp. Respiratory: Reports shortness of breath Respiratory effort is even, unlabored. 01/06 06:55 General: pt transported to dental lab technician via stretcher with pt stable, denies pain. aa9 Vital Signs: 01/05 20:13 BP 134 / 80; Pulse 81; Resp 20; Temp 97.7; Pulse Ox 98% on R/A; Weight 124.74 kg; hb Height 6 ft. 1 in. (185.42 cm); Pain 4/10; 20:13 Body Mass Index 36.28 (124.74 kg, 185.42 cm) hb ED Course: 20:10 Patient arrived in ED. ag3 20:15 Triage completed. hb 20:17 Arm band placed on. hb 20:20 Elsy Gupta MD is Attending Physician. sd2 20:20 EKG completed in triage. Results shown to MD. as6 20:31 Dg Garcia RN is Primary Nurse. as6 20:39 Inserted saline lock: 18 gauge in left antecubital area, using aseptic technique. Blood as6 collected. 20:39 Troponin High Sensitivity Sent. as6 20:39 CMP Sent. as6 20:39 CBC with Diff Sent. as6 20:53 Adult w/ patient. as6 21:01 XRAY Chest (1 view) In Process Unspecified. EDMS 21:15 Darcie Fonseca MD is Hospitalizing Provider. sd2 22:34 No provider procedures requiring assistance completed. Patient admitted, IV remains in as6 place. Administered Medications: No medications were administered Medication: 22:34 VIS not applicable for this client. as6 Outcome: 21:15 Decision to Hospitalize by Provider. sd2 22:34 Admitted to ER Hold. [email or web address]. as6 22:34 Condition: stable 22:34 Instructed on the need for admit. 01/06 06:56 Patient left the ED. aa9 Signatures: Dispatcher [employer] EDMS Marika Choudhury RN RN Delia Glover ag3 Dg Garcia RN RN as6 Elsy Gupta MD MD sd2 Geetha Bernard RN RN aa9 Corrections: (The following items were deleted from the chart) 06:55 06:55 General: pt transported to dental lab technician via stretcher with . aa9 aa9
--- NOTE | 2022-01-05 21:26 | RAD REPORT ---
EXAM DESCRIPTION: RAD - Chest Single View - 01/05/2022 8:59 pm CLINICAL HISTORY: CHEST PAIN COMPARISON: Portable 02/04/2018 TECHNIQUE: AP portable chest image was obtained 01/05/2022 8:59 pm . FINDINGS: Lungs are clear. Heart and vasculature are normal. No measurable pleural effusion and no p neumothorax. No acute bony abnormality seen. No acute aortic findings suspected. IMPRESSION: No acute cardiopulmonary process. No significant change from comparison study.
[2022-01-05 21:44] LABS: SARS-CoV-2 Antigen Rapid Res Negative (Negative)
--- NOTE | 2022-01-05 21:47 | P.HP ---
Certification for Inpatient Patient admitted to: Inpatient With expected LOS: <2 Midnights Patient will require the following post-hospital care: None Practitioner: I am a practitioner with admitting privileges, knowledge of patient current condition, hospital course, and medical plan of care. Services: Services provided to patient in accordance with Admission requirements found in Title 42 Section 412.3 of the Code of Federal Regulations <Melissa Almaraz - Last Filed: 01/05/22 23:14> Patient History Date of Service: 01/05/22 Reason for admission: Chest Pain History of Present Illness: Patient is a 61 year-old male with history of non-insulin dependent type 2 diabetes, afib, and hypertension who presented to the ED with complaints of substernal chest pain and shortness of breath that began 1.5 hours EVP AND CHIEF OPERATING OFFICER. He called Dr. Schroeder's office who instructed him to come to the ED. EKG showed NSR. Vital signs stable. Labs within normal limits. During my assessment, patient has no complaints. He is no longer experiencing any chest pain or shortness of breath. Dr. Schroeder wishes for patient to be admitted to hospitalist service and he will perform cardiac cath tomorrow morning. Home medications list reviewed: Yes - Past Medical/Surgical History Diabetic: Yes -: Chronic AFib -: Hypertension -: Diabetes mellitus -: Back surgery Psychosocial/ Personal History: Patient lives at home. - Family History Family History: Reviewed- Non-Contributory - Social History Smoking Status: Never smoker Alcohol use: No CD- Drugs: No Caffeine use: Yes Place of Residence: Home <Melissa Almaraz - Last Filed: 01/05/22 23:14> Date of Service: 01/06/22 <Kirit Lazcano - Last Filed: 01/06/22 10:49> Allergies No Known Allergies Allergy (Unverified 02/05/18 01:48) Home Medications: RX: Chlorthalidone [Hygroton 25mg Tab*] 25 mg PO DAILY 02/05/18 RX: Metformin ER [Glucophage ER*] 1,000 mg PO BID 02/05/18 RX: Pregabalin [Lyrica*] 150 mg PO BID 02/05/18 RX: Rivaroxaban [Xarelto*] 20 mg PO DAILY 02/05/18 RX: glipiZIDE [Glucotrol] 10 mg PO BID 02/05/18 RX: lisinopriL [Prinivil*] 20 mg PO DAILY 02/05/18 Review of Systems Respiratory: Shortness of Breath Cardiovascular: Chest Pain <Melissa Alamraz - Last Filed: 01/05/22 23:14> Physical Examination - Physical Exam General: Alert, In no apparent distress HEENT: Atraumatic, PERRLA, EOMI, Sclerae nonicteric Neck: Supple, 2+ carotid pulse no bruit, No LAD, Without JVD or thyroid abnormality Respiratory: Clear to auscultation bilaterally, Normal air movement Cardiovascular: Regular rate/rhythm, Normal S1 S2 Gastrointestinal: Normal bowel sounds, No tenderness Musculoskeletal: No tenderness Integumentary: No rashes Neurological: Normal speech, Normal strength at 5/5 x4 extr, Normal tone, Normal affect - Studies Laboratory Data (last 24 hrs) 01/05/22 20:37: Sodium 136, Potassium 4.4, BUN 31 H, Creatinine 1.31 H, Glucose 251 H, Total Bilirubin 0.4, AST 21, ALT 62, Alkaline Phosphatase 70 01/05/22 20:37: WBC 10.00, Hgb 16.3, Hct 47.6, Plt Count 129 L <Melissa Almaraz - Last Filed: 01/05/22 23:14> - Studies Laboratory Data (last 24 hrs) 01/05/22 20:37: Sodium 136, Potassium 4.4, BUN 31 H, Creatinine 1.31 H, Glucose 251 H, Total Bilirubin 0.4, AST 21, ALT 62, Alkaline Phosphatase 70 01/05/22 20:37: WBC 10.00, Hgb 16.3, Hct 47.6, Plt Count 129 L <Kirit Lazcano - Last Filed: 01/06/22 10:49> Assessment and Plan - Problems (Diagnosis) (1) Chest pain Status: Acute Qualifiers: Chest pain type: unspecified Qualified Code(s): R07.9 - Chest pain, unspecified (2) Type 2 diabetes mellitus Status: Acute Qualifiers: Diabetes mellitus jail insulin use: without rat exterminator use Diabetes mellitus complication status: with hyperglycemia Qualified Code(s): E11.65 - Type 2 diabetes mellitus with hyperglycemia (3) Chronic atrial fibrillation Status: Chronic (4) Hypertension Status: Chronic Qualifiers: Hypertension type: primary hypertension Qualified Code(s): I10 - Essential (primary) hypertension - Plan -NPO at midnight. Cardiac cath in morning. -Monitor on telemetry. -Gentle IV hydration overnight. -Initial troponin negative. Will repeat and trend. -Lipid panel, TSH, and A1C ordered for morning. -Glucose control with sliding scale. -Monitor and replete electrolytes per protocol. -Reconcile and continue home medications. -SCDs for VTE prophylaxis. -Full code Discharge Plan: Home Plan to discharge in: 48 Hours - Advance Directives Does patient have a Living Will: No Does patient have a Durable POA for Healthcare: No - Code Status/Comfort Care Code Status Assessed: Yes (Full) Critical Care: No Time Spent Managing Pts Care (In Minutes): 50 <Melissa Almaraz - Last Filed: 01/05/22 23:14> Physician Review: Patient Assessed, Agree with Above Assessment and Plan <Kirit Lazcano - Last Filed: 01/06/22 10:49>
[2022-01-05] MEDS ORDERED: ONDANSETRON 4 MG/2 ML VIAL IV PRN (21:48)
[2022-01-05] MEDS ORDERED: NA CHLORIDE 0.9% 1,000 ML IV SCH (22:00)
[2022-01-05] MEDS ORDERED: NA CHLORIDE 0.9% 1,000 ML ONE (22:05)
[2022-01-06] MEDS ORDERED: INSULIN -REGULAR HUMAN 50 UNIT/0.5 ML ML ONE (00:53)
[2022-01-06 01:47] VITALS: BMI 36.3
[2022-01-06 02:46] LABS: Hematocrit 44.3 % (39.6-49.0); MCV 84.4 fL (80-100); MPV 10.1 fL (7.6-11.3); RBC Red Blood Cell Count 5.26 M/uL (4.33-5.43)
[2022-01-06 03:15] LABS: Potassium 4.4 mmol/L (3.5-5.1); Troponin High Sensitivity 14.5 pg/mL (<58.9)
[2022-01-06 03:16] LABS: Thyroid Stimulating Hormone 4.19 uIU/mL (0.360-3.740)
[2022-01-06] MEDS: INSULIN -REGULAR HUMAN 50 UNIT/0.5 ML ML SQ SCH ×3 (06:00)
[2022-01-06 06:15] VITALS: TEMP 98.6
[2022-01-06] MEDS ORDERED: FENTANYL CITR 100 MCG/2 ML ONE (06:51)
[2022-01-06] MEDS ORDERED: HEPA 1000U/500MLS 2,000 UNIT/1,000 ML BAG IV ONE (06:51)
[2022-01-06] MEDS ORDERED: MIDAZOLAM HCL 2 MG/2 ML INJ ONE (06:51)
[2022-01-06] MEDS ORDERED: ATROPINE SULF 1 MG/10 ML SYR IV ONE (06:52)
[2022-01-06] MEDS ORDERED: NITROGLYCERIN/D5W 0 MG/0 ML BTL IV ONE (06:52)
[2022-01-06] MEDS ORDERED: NITROGLYCERIN 100 MCG/ML SYR (for cath lab use only) IV ONE (06:52)
[2022-01-06] MEDS ORDERED: NA CHLORIDE 0.9% 0 ML IV ONE (06:52)
[2022-01-06] MEDS ORDERED: LIDOCAINE 1% MPF 30 ML VIAL ONE (06:52)
[2022-01-06] MEDS ORDERED: NA CHLORIDE 0.9% 500 ML ONE (06:57)
--- NOTE | 2022-01-06 08:40 | P.DS ---
Admission Date: 01/05/22 Discharge Date: 01/06/22 Disposition: ROUTINE DISCHARGE Discharge Condition: GOOD Reason for Admission: Chest Pain Consultations: 1. Cardiology Procedures: 01/06/2022: Left Heart Catheterization Hospital Course: DIAGNOSES: # Atypical Chest Pain # Chronic Atrial Fibrillation # Type II Diabetes Mellitus # Hypertension HOSPITAL COURSE: Mr. David Varela is a pleasant 61 year old male with a past medical history significant for chronic atrial fibrillation on rivaroxaban, type II diabetes mellitus, and hypertension who was admitted to the [facility] on 01/05/2022 for chest pain. He was admitted to the Medicine service. EKG was reportedly without STEMI criteria. Troponin trend was 13.6 -> 14.5. Cardiology was consulted and he was evaluated by Dr. Schroeder. He underwent a left heart catheterization today, and per Dr. Schroeder, his angiogram was non-obstructive. He has cleared him for discharge with an outpatient follow-up appointment. He recommended no changes in medications at this time. On 01/06/2022, he was seen on morning rounds and deemed medically stable for discharge. He was discharged with instructions to schedule follow-up appointments with his PCP (Dr. Arauz) in 3-5 days and with Cardiology (Dr. Schroeder) in 3-5 days. He was given the opportunity to ask questions and reported no further questions. Furthermore, all questions were answered to the best of my ability. Today, I personally spent 20 minutes on his case, of which greater than 50% of the time was spent in patient education, counseling, and coordination of care as described above. Vital Signs/Physical Exam: Temp Pulse Resp BP Pulse Ox 98.6 F 69 15 123/68 99 01/06/22 08:30 01/06/22 08:30 01/06/22 08:30 01/06/22 08:30 01/06/22 00:00 General: Alert, In no apparent distress, Oriented x3 HEENT: Atraumatic, PERRLA, Mucous membr. moist/pink, EOMI, Sclerae nonicteric Neck: Supple Respiratory: Clear to auscultation bilaterally, Normal air movement Cardiovascular: No edema, Regular rate/rhythm, Normal S1 S2, No gallops, No rubs, No murmurs Gastrointestinal: Normal bowel sounds, Soft and benign, Non-distended, No tenderness, No rebound, No guarding Musculoskeletal: No clubbing, Other (right-groin catheterization site is clean, dry, and intact, without evidence of hematoma) Integumentary: No rashes Neurological: Normal speech, Cranial nerves 3-12 intact, Normal affect Laboratory Data at Discharge: WBC 9.60 K/uL (4.3-10.9) 01/06/22 02:21 Hgb 15.2 g/dL (13.6-17.9) 01/06/22 02:21 Hct 44.3 % (39.6-49.0) 01/06/22 02:21 Plt Count 108 K/uL (152-406) L 01/06/22 02:21 Sodium 135 mmol/L (136-145) L 01/06/22 02:21 Potassium 4.4 mmol/L (3.5-5.1) 01/06/22 02:21 BUN 27 mg/dL (7-18) H 01/06/22 02:21 Creatinine 1.34 mg/dL (0.55-1.3) H 01/06/22 02:21 Glucose 244 mg/dL (74-106) H 01/06/22 02:21 Total Bilirubin 0.4 mg/dL (0.2-1.0) 01/05/22 20:37 AST 21 U/L (15-37) 01/05/22 20:37 ALT 62 U/L (12-78) 01/05/22 20:37 Alkaline Phosphatase 70 U/L (45-117) 01/05/22 20:37 Triglycerides 392 mg/dL (<150) H 01/06/22 02:21 Cholesterol 124 mg/dL (<200) 01/06/22 02:21 HDL Cholesterol 23 mg/dL (40-60) L 01/06/22 02:21 Cholesterol/HDL Ratio 5.39 01/06/22 02:21 Home Medications: Chlorthalidone [Hygroton 25mg Tab*] 25 mg PO DAILY 02/05/18 Metformin ER [Glucophage ER*] 1,000 mg PO BID 02/05/18 Pregabalin [Lyrica*] 150 mg PO BID 02/05/18 Rivaroxaban [Xarelto*] 20 mg PO DAILY 02/05/18 glipiZIDE [Glucotrol] 10 mg PO BID 02/05/18 lisinopriL [Prinivil*] 20 mg PO DAILY 02/05/18 Physician Discharge Instructions: 1. Please schedule a follow-up appointment with your PCP (Dr. Arauz) in 3-5 days 2. Please schedule a follow-up appointment with your Stepdown Nurse (Dr. Schroeder) in 3-5 days Diet: ADA Activity: Ad matt Followup: Vlad Schroeder MD [Primary Care Provider] - Myron Arauz MD [ACTIVE - CAN ADMIT] - Time spent managing pt's care (in minutes): 20
[2022-01-06 09:15] VITALS: BP 119/64; O2SAT 96
--- NOTE | 2022-01-06 10:43 | CON ---
Date of Consultation: 01/05/2022 Reason For Consultation: Unstable angina. History Of Present Illness: Mr. Varela is a 61-year-old male, has obesity, previous atrial fibrillat ion status post cardioversion. He has hypertension. He has diabetes. He has dyslipidemia. Family history of heart disease. Came into the emergency room with substernal chest pressure, shortness of breath with exertion, pressure radiates to the back, some nausea, diaphoresis. Denied PND, orthopnea , pedal edema, palpitations, or syncope. Admitted for further evaluation and treatment. EKG was non specific. Troponin was negative. BNP was unremarkable. Kidney function was normal. Past Medical History: As stated above. Allergies: NONE. Review of Systems: Negative. Social History: Negative. Family History: Positive for heart disease. Physical Examination: Vital Signs: Stable. Afebrile. Blood pressure is 130/74, sinus rhythm. HEENT: Negative. Neck: Supple with no bruit. Chest: Clear. Cardiac: Revealed a regular rhythm and rate without any murmurs, gallops, or rubs. Abdomen: Benign. Extremities: Revealed no clubbing, cyanosis, or edema. Diagnostic Data: As stated earlier. Impression And Plan: Mr. Varela is 61, has classic unstable angina symptoms, has a history of diabet es, hypertension, dyslipidemia, family history of heart disease and atrial fibrillation, very high ri sk for coronary artery disease. We will plan to do a left heart catheterization with selective coron swathi arteriogram in the morning to define his coronary anatomy. The patient understands the risks and the benefits of the procedure and agrees to proceed. For now, continue present regimen. He has had atrial fibrillation. He is in sinus rhythm on Multaq and aspirin. His diabetes is well controlled. His blood pressure is well controlled. He also has a history of gout for which he takes allopurino l, and he has neuropathy, on Lyrica. NB/MODL Voice ID: [id number] Report ID: [id number]
--- NOTE | 2022-01-06 14:09 | EKG ---
Test Date: 2022-01-05 Test Time: 20:21:18 [employer]: MEASUREMENT RESULTS: Intervals: Rate: 78 IA: 146 QRSD: 78 QT: 366 QTc: 417 [place]: P: 44 IA: 146 QRS: 51 T: 60 INTERPRETIVE STATEMENTS: Normal sinus rhythm Normal ECG Compared to ECG 02/05/2018 13:40:05 No significant changes Electronically Signed On 01-06-22 14:08:06 CDT by Bebeto Rowe
--- NOTE | 2022-01-06 20:15 | OP ---
Date of Procedure: 01/06/2022 Surgeon: Vlad Schroeder MD Chief Of Staff Doctor: Ms. Neeta Booth. Procedure: Left heart catheterization, selective coronary arteriogram, left ventriculogram, common f emoral artery angiogram, left ventricular end-diastolic pressure measurement. History Of Present Illness: Mr. Varela is 61, admitted to Dr. Fonseca and Dr. Lazcano for unstable angina . Procedure In Detail: He was brought to the laboratory secretary as an inpatient, prepped and draped in routine s terile fashion. Given Versed and fentanyl for sedation. A 6-[place] sheath introduced in the right c ommon femoral artery successfully using the Seldinger technique and 10 cc of Xylocaine. Tien cath eter left and right were used to cannulate the left main and right main respectively. His RCA was no rmal, was dominant. The circumflex was normal. Left main was normal. His LAD had about 30% mid LAD stenosis with some moderate plaquing throughout. A pigtail catheter was introduced in the left vent ricle. Left ventriculogram was normal with an end-diastolic pressure of 12. Common femoral artery a ngiogram was normal. Angio-Seal was used to close the case. The patient tolerated the procedure wel l. No complication. Blood Loss: 5 cc. Total conscious sedation was 30 minutes. Final Impression: Minimal coronary artery disease. Plan: Plan is for medical therapy, probably . Consider pulmonary workup for his symptoms . Consider gastroesophageal reflux disease as an issue. He will go home today after 2 hours of bedr est. I will see him in the office in the next 2 weeks. Case was discussed with the family. GARRETT/JULIANA Voice ID: [id number] Report ID: [id number]
== END 2022-01-06 09:39 | disposition home or self-care (01) | DRG 287 ==
LOC: ER 20:07 → ERHOLD 21:24
PROVIDERS: ADMIT Hospitalist; ATTEND Internal Medicine
PROC: 4A023N7 Measurement of Cardiac Sampling and Pressure, Left Heart, Percutaneous Approach (ICD-10-PCS; principal; 2022-01-06)
PROC: B2111ZZ Fluoroscopy of Multiple Coronary Arteries using Low Osmolar Contrast (ICD-10-PCS; 2022-01-06)
PROC: B2151ZZ Fluoroscopy of Left Heart using Low Osmolar Contrast (ICD-10-PCS; 2022-01-06)
DX: I25.110 Atherosclerotic heart disease of native coronary artery with unstable angina pectoris (principal); I48.20 Chronic atrial fibrillation, unspecified; E11.40 Type 2 diabetes mellitus with diabetic neuropathy, unspecified; E11.65 Type 2 diabetes mellitus with hyperglycemia; M10.9 Gout, unspecified; K21.9 Gastro-esophageal reflux disease without esophagitis; I10 Essential (primary) hypertension; Z79.84 Long term (current) use of oral hypoglycemic drugs; Z79.82 Long term (current) use of aspirin; Z79.01 Long term (current) use of anticoagulants; Z79.899 Other long term (current) drug therapy; Z20.822 Contact with and (suspected) exposure to COVID-19
CPT/HCPCS: 36415; 71045; 80048; 80053; 80061; 82947; 83036; 83880; 84439; 84443; 84484; 85025; 85027; 87811; 93005; 93458; 99285; C1760; C1893; G0269; J0583; J1644; J1815; J2250; J3010; J7030; J7040; Q9966